=== PATIENT | male | born 1975 | race American Indian/Alaskan Native ===

== ENCOUNTER 2020-08-12 17:42 | Emergency (ER) | payer BC ==
[2020-08-12 17:49] VITALS: BP 142/88
--- NOTE | 2020-08-12 17:55 | Emergency Department Report ---
- General Chief complaint: Extremity Injury, Upper Stated complaint: FINGER INJURY Time Seen by Provider: 08/12/20 17:51 Source: patient Mode of arrival: Ambulatory Limitations: No Limitations - History of Present Illness Initial comments: Patient is a 45-year-old male presents emergency room with complaints of a possible left index finger infection. He states that 3 days ago he was using a power drill and that the nail popped off and he accidentally cut himself with a drill. He states that today he noticed finger swelling, redness, pain. He states that when he took his Band-Aid off he saw a small amount of drainage. He denies any fever, chills, vomiting, diarrhea. He has an allergy to doxycycline. he states his tetanus immunization is UTD. - Related Data Previous Rx's Medication Instructions Recorded Last Taken Type Sulfamethoxazole/Trimethoprim 1 each PO BID 7 Days #14 tablet 08/12/20 Unknown Rx [Bactrim DS TAB] Allergies Allergy/AdvReac Type Severity Reaction Status Date / Time doxycycline Allergy Unknown Verified 08/12/20 17:46 Abscess Boil HPI - HPI Chief Complaint: Extremity Injury, Upper Stated Complaint: FINGER INJURY Time Seen by Provider: 08/12/20 17:51 Home Medications: Previous Rx's Medication Instructions Recorded Last Taken Type Sulfamethoxazole/Trimethoprim 1 each PO BID 7 Days #14 tablet 08/12/20 Unknown Rx [Bactrim DS TAB] Allergies/Adverse Reactions: Allergies Allergy/AdvReac Type Severity Reaction Status Date / Time doxycycline Allergy Unknown Verified 08/12/20 17:46 ED Review of Systems ROS: Stated complaint: FINGER INJURY Other details as noted in HPI Comment: All other systems reviewed and negative ED Past Medical Hx - Past Medical History Previous Medical History?: Yes Additional medical history: Olivier Cachorro syndrome - Surgical History Past Surgical History?: Yes Additional Surgical History: Resection of hischsprung - Social History Smoking Status: Never Smoker - Medications Home Medications: Home Medications Medication Instructions Recorded Confirmed Last Taken Type Sulfamethoxazole/Trimethoprim 1 each PO BID 7 Days #14 tablet 08/12/20 Unknown Rx [Bactrim DS TAB] ED Physical Exam - General Limitations: No Limitations General appearance: alert, in no apparent distress - Head Head exam: Present: atraumatic, normocephalic - Eye Eye exam: Present: normal appearance - ENT ENT exam: Present: mucous membranes moist - Respiratory Respiratory exam: Absent: respiratory distress, accessory muscle use - Neurological Exam Neurological exam: Present: alert, oriented X3 - Psychiatric Psychiatric exam: Present: normal affect, normal mood - Skin Skin exam: Present: warm, dry, other (1 cm abrasion present to the proximal left index finger on the palmar surface, there is edema and erythema of the left index finger, there is a small 0.5 cm opening with very small amount of purulent drainage, unable to express drainage, no central flutuance, FROM of the left index finger, neurovascularly intact) ED Course Vital Signs 08/12/20 17:45 Temperature 98.0 F Pulse Rate 72 Respiratory 18 Rate Blood Pressure 142/88 O2 Sat by Pulse 97 Oximetry ED Medical Decision Making - Medical Decision Making Patient is a 45-year-old male presents emergency room with complaints of a possible left index finger infection. He states that 3 days ago he was using a power drill and that the nail popped off and he accidentally cut himself with a drill. He states that today he noticed finger swelling, redness, pain. He states that when he took his Band-Aid off he saw a small amount of drainage. He denies any fever, chills, vomiting, diarrhea. He has an allergy to doxycycline. he states his tetanus immunization is UTD. VSS. on exam: 1 cm abrasion present to the proximal left index finger on the palmar surface, there is edema and erythema of the left index finger, there is a small 0.5 cm opening with very small amount of purulent drainage, unable to express drainage, no central flutuance, FROM of the left index finger, neurovascularly intact. Examination appears consistent with cellulitis, no drainable abscess at this time. No signs of infectious tenosynovitis or septic joint. Patient given prescription for Bactrim. Advised patient Please take medication as prescribed. Please keep area clean, dry, covered. May wash with antibacterial soap and water twice a day and pat dry. No hot tub, no pool, no soaking in water. Showering is fine. Follow-up with primary care doctor for reexamination. Return to emergency room immediately for any new or worsening symptoms. Critical care attestation.: If time is entered above; I have spent that time in minutes in the direct care of this critically ill patient, excluding procedure time. ED Disposition Clinical Impression: Cellulitis Qualifiers: Site of cellulitis: extremity Site of cellulitis of extremity: upper extremity Laterality: left Qualified Code(s): L03.114 - Cellulitis of left upper limb Disposition: - TO HOME OR SELFCARE Is pt being admited?: No Does the pt Need Aspirin: No Condition: Stable Instructions: Cellulitis (ED) Additional Instructions: Please take medication as prescribed. Please keep area clean, dry, covered. May wash with antibacterial soap and water twice a day and pat dry. No hot tub, no pool, no soaking in water. Showering is fine. Follow-up with primary care doctor for reexamination. Return to emergency room immediately for any new or worsening symptoms. Prescriptions: Sulfamethoxazole/Trimethoprim [Bactrim DS TAB] 1 each PO BID 7 Days #14 tablet Referrals: your, primary care doctor [Other] - 2-3 Days Time of Disposition: 17:54 Print Language: ESTONIAN
== END 2020-08-12 18:13 | disposition home or self-care (01) ==
LOC: ED 17:42
DX: L03.114 Cellulitis of left upper limb (principal); Z88.1 Allergy status to other antibiotic agents
CPT/HCPCS: 99281

== ENCOUNTER 2020-08-13 01:11 | Emergency (ER) | payer BC ==
[2020-08-13 01:17] VITALS: BP 137/85
--- NOTE | 2020-08-13 01:55 | Emergency Department Report ---
ED General Adult HPI - General Chief complaint: Extremity Injury, Upper Stated complaint: INFECTED LT FINGER Source: patient Mode of arrival: Ambulatory Limitations: No Limitations - History of Present Illness Initial comments: Patient is a 45-year-old -[place] male with no past medical history presents to the ED with complaint of acute onset painful swollen left index finger due to a puncture wound he suffered 4 days ago when he was using tools at home and a screwdriver ended up puncturing his left index finger. Patient states that the pain was mild initially but in the last 2 days the pain and the swelling of worsened. Patient states that he is up-to-date with all his vaccinations. Patient was initially evaluated and treated in this ED and given a prescription of oral antibiotics. Patient states that about 6 hours ago the pain and the swelling got worse. Patient denies fever, chills, nausea, vomiting, numbness and tingling or weakness of left hand or left index finger, chest pain or shortness of breath, fall or neck pain. MD Complaint: painful swollen left index finger open puncture wound with discharge -: Sudden, days(s) (4) Location: left, upper extremity (left index finger) Radiation: non-radiation Severity scale (0 -10): 7 Quality: aching, sharp Consistency: constant Improves with: none Worsens with: none Associated Symptoms: denies other symptoms. denies: confusion, chest pain, cough, diaphoresis, fever/chills, headaches, loss of appetite, nausea/vomiting, rash, seizure, shortness of breath, syncope, weakness Treatments Prior to Arrival: none - Related Data Previous Rx's Medication Instructions Recorded Last Taken Type Sulfamethoxazole/Trimethoprim 1 each PO BID 7 Days #14 tablet 08/12/20 Unknown Rx [Bactrim DS TAB] Ibuprofen [Motrin] 800 mg PO Q8HR PRN #30 tablet 08/13/20 Unknown Rx Allergies Allergy/AdvReac Type Severity Reaction Status Date / Time doxycycline Allergy Unknown Verified 08/12/20 17:46 ED Review of Systems ROS: Stated complaint: INFECTED LT FINGER Other details as noted in HPI Constitutional: denies: chills, fever Eyes: denies: eye pain, eye discharge, vision change ENT: denies: ear pain, throat pain Respiratory: denies: cough, shortness of breath, wheezing Cardiovascular: denies: chest pain, palpitations Endocrine: no symptoms reported Gastrointestinal: denies: abdominal pain, nausea, diarrhea Genitourinary: denies: urgency, dysuria Musculoskeletal: arthralgia (left index finger pain with open puncture wound). denies: back pain, joint swelling Skin: other (Open puncture wound on left index finger with pain). denies: rash, lesions Neurological: denies: headache, weakness, paresthesias Psychiatric: denies: anxiety, depression Hematological/Lymphatic: denies: easy bleeding, easy bruising ED Past Medical Hx - Past Medical History Previous Medical History?: Yes Additional medical history: Olivier Cachorro syndrome - Surgical History Additional Surgical History: Resection of hischsprung - Social History Smoking Status: Never Smoker Substance Use Type: None - Medications Home Medications: Home Medications Medication Instructions Recorded Confirmed Last Taken Type Sulfamethoxazole/Trimethoprim 1 each PO BID 7 Days #14 tablet 08/12/20 Unknown Rx [Bactrim DS TAB] Ibuprofen [Motrin] 800 mg PO Q8HR PRN #30 tablet 08/13/20 Unknown Rx ED Physical Exam - General Limitations: No Limitations General appearance: alert, in no apparent distress - Head Head exam: Present: atraumatic, normocephalic, normal inspection - Eye Eye exam: Present: normal appearance, PERRL, EOMI Pupils: Present: normal accommodation - ENT ENT exam: Present: normal exam, normal orophraynx, mucous membranes moist, TM's normal bilaterally, normal external ear exam - Neck Neck exam: Present: normal inspection, full ROM - Respiratory Respiratory exam: Present: normal lung sounds bilaterally. Absent: respiratory distress, wheezes, rales, rhonchi, chest wall tenderness, accessory muscle use, decreased breath sounds - Cardiovascular Cardiovascular Exam: Present: regular rate, normal rhythm, normal heart sounds. Absent: systolic murmur, diastolic murmur, rubs, gallop - GI/Abdominal GI/Abdominal exam: Present: soft, normal bowel sounds. Absent: tenderness, guarding, rebound, hyperactive bowel sounds, organomegaly - Extremities Exam Extremities exam: Present: normal inspection, full ROM, tenderness (Palpable left index finger tenderness with swelling due to an open puncture wound with purulent discharge), normal capillary refill. Absent: pedal edema, joint swelling, calf tenderness - Back Exam Back exam: Present: normal inspection, full ROM. Absent: tenderness, CVA tenderness (R), CVA tenderness (L), muscle spasm, paraspinal tenderness - Neurological Exam Neurological exam: Present: alert, oriented X3, CN II-XII intact, normal gait, reflexes normal - Psychiatric Psychiatric exam: Present: normal affect, normal mood - Skin Skin exam: Present: warm, dry, intact, normal color, other (Open puncture wound on left index finger with purulent discharge and tenderness). Absent: rash ED Course Vital Signs 08/13/20 01:16 Temperature 97.9 F Pulse Rate 75 Respiratory 18 Rate Blood Pressure 137/85 O2 Sat by Pulse 95 Oximetry - I & D Left Finger Type of Procedure: Simple Site: Left index finger Blade Size: 11 I & D Procedure: betadine prep, sterile drapes applied, sterile dressing applied Progress: Patient tolerated the procedure well. The area was cleaned with normal saline and Betadine solution. A total of 4 milliliters of lidocaine 1% solution was used for anesthesia. The wound was then opened and drained appropriately and debrided and then cleaned with normal saline. The wound was packed with sterile gauze and dressed appropriately. Patient was discharged home on pain medications since he is already on Bactrim DS. ED Medical Decision Making - Medical Decision Making This is a 45-year-old -[place] male with no past medical history presents to the ED with complaint of acute onset painful swollen left index finger due to a puncture wound he suffered 4 days ago when he was using tools at home and a screwdriver ended up puncturing his left index finger. Patient states that the pain was mild initially but in the last 2 days the pain and the swelling of worsened. Patient states that he is up-to-date with all his vaccinations. Patient was initially evaluated and treated in this ED and given a prescription of oral antibiotics. Patient states that about 6 hours ago the pain and the swelling got worse. In the ED, patient is alert and oriented x3 and is not in distress. Patient was treated for pain in the ED and left index finger puncture wound was cleaned and debrided thoroughly and the patient was treated for pain. Patient is currently on Bactrim DS at home. Patient was discharged home advised to continue taking the Bactrim DS that was prescribed and pain medication as needed. Patient was advised return to the ED immediately if symptoms get worse, otherwise follow-up with your primary care physician in 7 to 10 days for reevaluation. - Differential Diagnosis puncture wound; cellulitis; sprained finger Critical care attestation.: If time is entered above; I have spent that time in minutes in the direct care of this critically ill patient, excluding procedure time. ED Disposition Clinical Impression: Cellulitis of left index finger Infected puncture wound of left index finger Qualifiers: Encounter type: initial encounter Qualified Code(s): S61.231A - Puncture wound without foreign body of left index finger without damage to nail, initial encounter Disposition: TO HOME OR SELFCARE Is pt being admited?: No Does the pt Need Aspirin: No Condition: Stable Instructions: Puncture Wound (ED), Cellulitis (ED) Additional Instructions: Take medication with food, drink plenty of fluids and follow-up with your primary care physician in 7 to 10 days for reevaluation. Return to the ED immediately if symptoms get worse. Prescriptions: Ibuprofen [Motrin] 800 mg PO Q8HR PRN #30 tablet PRN Reason: Pain , Severe (7-10) Referrals: [facility] [Provider Group] - 7-10 days Forms: Work/School Release Form(ED) Time of Disposition: 01:59 Print Language: TUNISIAN
[2020-08-13] MEDS ORDERED: LIDOCAINE-MPF (1%) 10 MG/1 ML VIAL 5 ML INFILTRATI ONE (02:01)
[2020-08-13] MEDS ORDERED: IBUPROFEN 600 MG TAB PO ONE (02:01)
[2020-08-13] MEDS ORDERED: ACETAMINOPHEN 500 MG TAB PO ONE (02:01)
[2020-08-13] MEDS ORDERED: HYDROcodone/ACETAMINOPHEN 5-325 MG TAB ONE (02:29)
[2020-08-13] MEDS ORDERED: HYDROcodone/ACETAMINOPHEN 5-325 MG TAB PO ONE (02:30)
== END 2020-08-13 02:35 | disposition home or self-care (01) ==
LOC: ED 01:11
DX: S61.231A Puncture wound without foreign body of left index finger without damage to nail, initial encounter (principal); L03.012 Cellulitis of left finger; Z88.8 Allergy status to other drugs, medicaments and biological substances; Z79.899 Other long term (current) drug therapy; Z98.890 Other specified postprocedural states; X58.XXXA Exposure to other specified factors, initial encounter; Y93.89 Activity, other specified; Y92.009 Unspecified place in unspecified non-institutional (private) residence as the place of occurrence of the external cause; Y99.8 Other external cause status

== ENCOUNTER 2020-09-22 09:33 | Outpatient (CLI) | payer BC | END 2020-09-22 09:34 | disposition home or self-care (01) | LOC: MRI 09:33 | DX: R93.5 Abnormal findings on diagnostic imaging of other abdominal regions, including retroperitoneum (principal) | CPT/HCPCS: 74183; A9575 ==